=== PATIENT | male | born 1990 | race Hispanic/Latino ===

== ENCOUNTER 2018-07-07 22:07 | Emergency (ER) | payer BC ==
[2018-07-07 22:09] VITALS: BP 138/86; RESP 16; TEMP 98.2
--- NOTE | 2018-07-08 00:24 | ED PDOC ---
HPI: Psych/Substance Abuse Time Seen by Provider: 07/07/18 22:16 Chief Complaint (Nursing): Alcohol Ingestion Chief Complaint (Provider): alcohol ingestion History Per: Patient, EMS History/Exam Limitations: no limitations Onset/Duration Of Symptoms: Mins (just prior to arrival) Current Symptoms Are (Timing): Still Present Severity: Moderate Additional Complaint(s): 27 year old male with a past medical history of bipolar disorder is brought into the ED with alcohol ingestion. As per EMS patient was found asleep, and seemed intoxicated of alcohol. According to patient's mother, patient relapsed because of a recent job loss. Patient denies having suicidal ideations, homicidal ideations, drug use, or alcohol use. PMD: None provided. Past Medical History Reviewed: Historical Data, Nursing Documentation, Vital Signs Vital Signs: Last Vital Signs Temp 98.2 F 07/07/18 22:09 Pulse 123 H 07/07/18 22:09 Resp 16 07/07/18 22:09 BP 138/86 07/07/18 22:09 Pulse Ox 97 07/07/18 22:09 ISHAAN Report Viewed: Yes - Medical History PMH: Bipolar Disorder - Family History Family History: States: No Known Family Hx - Social History Alcohol: None (patient denies) Drugs: Denies - Allergies Allergies/Adverse Reactions: Allergies Allergy/AdvReac Type Severity Reaction Status Date / Time No Known Allergies Allergy Verified 07/07/18 22:08 Review of Systems ROS Statement: Except As Marked, All Systems Reviewed And Found Negative Psych: Negative for: Suicidal ideation, Other (homicidal ideation) Physical Exam - Reviewed Nursing Documentation Reviewed: Yes Vital Signs Reviewed: Yes - Physical Exam Appears: Positive for: Non-toxic, No Acute Distress. Negative for: Well (visibly intoxicated, slurred speech) Head Exam: Positive for: ATRAUMATIC, NORMOCEPHALIC Skin: Positive for: Normal Color, Warm, Dry Eye Exam: Positive for: Normal appearance Cardiovascular/Chest: Positive for: Regular Rate, Rhythm Respiratory: Positive for: Normal Breath Sounds Neurological/Psych: Positive for: Awake, Alert, Oriented (3x), Gait (steady, unassisted). Negative for: Motor/Sensory Deficits - ECG O2 Sat by Pulse Oximetry: 97 (RA) Pulse Ox Interpretation: Normal Medical Decision Making Medical Decision Makin:16 Initial impression: 27 year old male with alcohol intoxication with no signs of trauma. Patient competent to make medical decisions for himself. Patient's m other at bedside and states that she will stay with him overnight. Will discharge home in custody of mother. Patient stable for discharge home. Scribe Attestation: Documented by Amanda Dc, acting as a scribe for Pablo Hand MD. Provider Scribe Attestation: All medical record entries made by the Scribe were at my direction and personally dictated by me. I have reviewed the chart and agree that the record accurately reflects my personal performance of the history, physical exam, medical decision making, and the department course for this patient. I have also personally directed, reviewed, and agree with the discharge instructions and disposition. Disposition - Clinical Impression Clinical Impression: Alcohol abuse Counseled Patient/Family Regarding: Diagnosis, Need For Followup - Disposition Referrals: Alcoholics Anonymous [Outside] Disposition: Routine/Home Disposition Time: 00:30 Condition: IMPROVED Instructions: Alcohol Use - When Is Drinking a Problem? Forms: Nanalysis (Welsh)
[2018-07-08 00:46] VITALS: PULSE 99
[2018-07-08 03:46] VITALS: O2SAT 97
== END 2018-07-08 00:05 | disposition home or self-care (01) ==
LOC: H.ER 22:07
DX: F10.10 Alcohol abuse, uncomplicated (principal); Z86.59 Personal history of other mental and behavioral disorders